=== PATIENT | female | born 1980 | race Caucasian/White ===

== ENCOUNTER 2023-11-14 08:32 | Emergency (ER) | payer BC, SELFPAY ==
--- NOTE | ~2023-11-14 | CT_ITS ---
EXAMINATION: CT abdomen pelvis wo con DATE: 11/14/2023 08:52 INDICATION: Right flank pain. TECHNIQUE: Computed tomography (CT) of the abdomen and pelvis was performed without intravenous contr ast. Automated exposure control and iterative reconstruction technique were employed. The dose-length product was 219.22 mGy-cm. COMPARISON: None. FINDINGS: The visualized portions of the lung bases are clear without pneumonia or pleural effusion. The heart size is normal. No pericardial effusion. The liver, gallbladder, spleen, pancreas, and adre nal glands are normal. There is mild right hydronephrosis and hydroureter to the level of a 4 mm ston e in distal right ureter. Left kidney is normal. There are no dilated loops of bowel. The appendix is normal. There are no pathologically enlarged lymph nodes. There is no free intraperitoneal fluid. Th ere is mild lumbar spondylosis. IMPRESSION: 1. 4 mm stone in distal right ureter with mild right hydronephrosis and hydroureter. Reviewed, dictated and finalized at [facility]. IMPRESSION: 1. 4 mm stone in distal right ureter with mild right hydronephrosis and hydrour eter.
[2023-11-14 08:38] VITALS: BP 117/77; PULSE 56; RESP 18; TEMP 36.4; O2SAT 100
--- NOTE | 2023-11-14 08:38 | ED.BACK ---
HPI - Back Pain/Injury General Chief Complaint: Urogenital-Female Stated Complaint: flank pain Time Seen by Provider: 11/14/23 08:35 History of Present Illness HPI Narrative: Pt presents with right flank pain radiating to right groin for about 2 hrs. Pt says the pain is constant but waxes and wanes in severity. Pt has no history of kidney stones. Pt denies urinary symptoms. Pt denies fever or vomiting. Related Data Allergies Allergy/AdvReac Type Severity Reaction Status Date / Time acetaminophen [From Vicodin] Allergy Itching Verified 11/14/23 08:48 celecoxib [From Celebrex] Allergy Headache Verified 11/14/23 09:10 codeine Allergy Itching Verified 11/14/23 09:10 [From Tylenol-Codeine #3] fentanyl Allergy Itching Verified 11/14/23 09:10 hydrocodone [From Vicodin] Allergy Itching Verified 11/14/23 08:48 latex Allergy Rash Verified 11/14/23 09:10 morphine Allergy Itching Verified 11/14/23 08:48 oxycodone Allergy Itching Verified 11/14/23 09:10 propoxyphene Allergy Itching Verified 11/14/23 09:10 sulfasalazine Allergy Itching Verified 11/14/23 09:10 ibuprofen AdvReac Headache Verified 11/14/23 08:48 ketorolac [From Toradol] AdvReac Nausea Verified 11/14/23 09:10 Review of Systems Review of Systems: All systems reviewed & are unremarkable except as noted in HPI and below Exam Const: General: cooperative and in distress (uncomfortabel) Nutritional Appearance: average body habitus Orientation/consciousness: patient oriented x3 Limitations: no limitations Neck: Neck: normal visual inspection, full ROM and no lymphadenopathy Chest: Chest palpation & inspection: normal inspection of the chest Resp: Effort & Inspection: normal respiratory effort and able to speak in complete sentences Auscultation: clear to auscultation bilaterally Cardio: Rate: regular rate Rhythm: regular rhythm GI: Inspection: normal to inspection GI Palp: No abdominal tenderness Auscultation: normal bowel sounds : General: Yes CVA tenderness on the right Back/Spine/Pelvis: Back: CVA tenderness (right) Skin: General skin exam: normal color and no rashes or lesions noted Neuro: General: patient oriented x3 Cranial nerves: Yes CN's II-XII intact bilaterally and Yes Bilaterally intact EOM present Speech: normal speech Motor exam (neuro): 5/5 motor strength present throughout Sensory Exam: normal sensation Extrem: General: normal to inspection, full ROM and no clubbing, cyanosis or edema Psych: Appearance: grossly normal Mental Status: mental status grossly normal Speech and movement: Normal speech and movement present Attitude: cooperative Thought process: Normal thought process present Thought content: Yes Normal thought content present Course Vital Signs Vital signs: Vital Signs Temperature 97.5 F L 11/14/23 08:38 Pulse Rate 56 L 11/14/23 08:38 Respiratory Rate 18 11/14/23 08:38 Blood Pressure 117/77 11/14/23 08:38 Pulse Oximetry 100 11/14/23 08:38 Oxygen Delivery Autopap 11/14/23 08:38 Temperature 97.5 F L 11/14/23 08:38 Pulse Rate 56 L 11/14/23 08:38 Respiratory Rate 18 11/14/23 08:38 Blood Pressure 117/77 11/14/23 08:38 Pulse Oximetry 100 11/14/23 08:38 Oxygen Delivery Autopap 11/14/23 08:38 MDM - Back Pain/Injury MDM Narrative Medical decision making narrative: ddx kidney stone, pyelonephritis back pain lumbar strain. will get labs, UA and CT abd without and treat pain and nausea. Pt has 4mm distal right ureteral stone with mod hydro. Pt pain controlled with Toradol. Pt has tramodol at home which worked for her dental pain. will add zofran. Home with strainer and urology phone numbers. UA has some wbc and 1+ bact but will await culture as has no uti symptoms and just finished amoxil for dental procedure. Lab Data 11/14/23 08:58 11/14/23 08:58 Labs: Lab Results 11/14/23 Range/Units 08:58 WBC 8.3 (4.8-10.8) K/mm3 RBC 4.94
[2023-11-14 09:00] VITALS: BP 109/73; PULSE 55; RESP 16; O2SAT 99
[2023-11-14] MEDS: ONDANSETRON INJ 4 MG/2 ML VIAL IV PUSH (09:02)
[2023-11-14 09:03] LABS: Appearance Urine Cloudy (Clear); Basophils Absolute Auto 0.05 K/mm3 (0.00-0.10); Basophils Percent Auto 0.6 % (0.0-1.0); Bilirubin Urine Negative (Negative); Blood Urine 3+ (Negative); Color Urine Yellow (Yellow); Eosinophils Absolute Auto 0.08 K/mm3 (0.02-0.50); Glucose Urine UA Negative (Negative); Hematocrit 43.9 % (35.0-49.0); Hemoglobin 14.2 g/dL (12.0-15.0); Immature Granulocyte Absolute 0.01 K/mm3 (0.00-0.00); Immature Granulocyte Percent A 0.1 % (0.0-0.0); Ketones Urine Trace (Negative); Leukocyte Esterase Ur 1+ LEU/UL (Negative); Lymphocytes Absolute Auto 2.89 K/mm3 (1.10-4.50); Lymphocytes Percent Auto 34.7 % (18.0-42.0); Mean Corpuscular HGB Conc 32.3 g/dL (32-36); Mean Corpuscular Hemoglobin 28.7 pg (27.0-31.0); Mean Corpuscular Volume 88.9 fL (78.0-102.0); Mean Platelet Volume 10.1 fl (9.2-11.8); Monocytes Absolute Auto 0.55 K/mm3 (0.10-0.90); Monocytes Percent Auto 6.6 % (2.0-11.0); Neutrophils Absolute Auto 4.74 K/mm3 (1.70-7.20); Nitrate Urine Negative (Negative); Platelet Count Result 311 K/mm3 (150-420); Protein Urine 1+ (Negative); Red Blood Count 4.94 M/mm3 (4.20-5.40); Red Cell Distribution Width 11.9 % (11.6-14.4); White Blood Count 8.3 K/mm3 (4.8-10.8); pH Urine 7.5 (5.0-8.0)
[2023-11-14] MEDS: SODIUM CHLORIDE 0.9% IV 1,000 ML 999 ML IV CONT (09:03)
[2023-11-14] MEDS: KETOROLAC 15 MG/ML VIAL (*BKC) IV PUSH (09:05)
[2023-11-14 09:08] LABS: Add Urine Microscopic? YES; Bacteria Urine 1+ /hpf; RBC Urine >75 /hpf (0-2); Squamous Epithelial Cell Urine Few /hpf (Few)
[2023-11-14 09:16] LABS: Partial Thromboplastin Time 23.9 Sec (23.9-30.70)
[2023-11-14 09:18] LABS: Alanine Aminotransferase 24 U/L (14-59); Albumin Level 3.8 g/dL (3.4-5.0); Alkaline Phosphatase 84 U/L (46-116); Anion Gap 13 mmol/L (4-12); Aspartate Amino Transferase 15 U/L (15-37); Bilirubin,Total 0.8 mg/dL (0.00-1.00); Blood Urea Nitrogen 15 mg/dL (7-18); Calcium 9.4 mg/dL (8.5-10.1); Carbon Dioxide 24 mmol/L (21-32); Chloride 105 mmol/L (98-108); Estimated CRCL calculation 60 ml/min; Estimated Glomerular Filt Rate > 60; Glucose 137 mg/dL (70-99); Lipase 25 U/L (16-77); Osmolality Calculated 296 mOsm/kg (285-295); Potassium 3.8 mmol/L (3.5-5.1); Sodium 142 mmol/L (136-145); Total Protein 7.5 g/dL (6.4-8.2)
[2023-11-14 09:30] VITALS: BP 106/72; PULSE 55; RESP 17; O2SAT 99
[2023-11-14 10:00] VITALS: BP 108/75; PULSE 51; RESP 16; O2SAT 99
[2023-11-14 10:13] VITALS: BP 108/75; PULSE 51; RESP 16; TEMP 36.6; O2SAT 99
--- NOTE | 2023-11-16 13:21 | PC.NURSE ---
final urine culture results: isolate 1: 1,000-9,000 cfu/ml of group b strep isolated. per dr merrill, pt is to follow up with primary dr. attempted to contact pt, message left to return call.
--- NOTE | 2023-11-17 12:54 | PC.NURSE ---
final urine culture reviewed. group b strep isolated. these organisms are commonly found on external and internal genitalia. erp reviewed this report, dr anderson. pt contacted and instructed to f/u with pmd for further evaluation, per erp orders. pt voices understanding. no other change in plan of care
== END 2023-11-14 10:13 | disposition home or self-care (01) ==
PROVIDERS: Emergency Provider Emergency Medicine
DX: N20.1 Calculus of ureter (principal)
CPT/HCPCS: 36415; 74176; 80053; 81001; 83690; 85025; 85610; 85730; 87086; 87088; 96361; 96374; 96375; 99284; J1885; J2405; J7030

== ENCOUNTER 2023-12-12 08:14 | Outpatient (CLI) | payer BC, SELFPAY ==
--- NOTE | ~2023-12-12 | CT_ITS ---
Non-contrast CT scan of the Abdomen and Pelvis Clinical indication: Right ureteral stent Technique: 2.5 mm axial scans were obtained through the abdomen and pelvis without intravenous or or al contrast. Dose reduction technique was used on this scan by utilizing automated exposure control a nd iterative reconstruction technique. The dose-length product (DLP) was 340.51 mGy-cm. COMPARISON: 11/14/2023 Findings: Images through the lung bases reveal no abnormalities. Punctate nonobstructing left renal stone noted. No right renal stone. No ureteral stone or hydronephrosis on either side. The liver, spl een, pancreas, gallbladder, and adrenals appear normal. There is no aortic aneurysm. There is no evidence of bowel obstruction. Normal appendix. Images through the pelvis were performed. There is no evidence of ascites or lymphadenopathy. Urinary bladder unremarkable. Status post hysterectomy. No pelvic mass seen. Impression: Punctate nonobstructing left renal stone. No other significant findings. Reviewed, dictated and finalized at [facility]. Impression: Punctate nonobstructing left renal stone. No other significant findings.
== END 2023-12-12 08:15 ==
LOC: MICIMG 08:15
PROVIDERS: PCP Physician Assistant; Visit Provider Physician Assistant
DX: N20.0 Calculus of kidney (principal)
CPT/HCPCS: 74176